=== PATIENT | male | born 1945 | race Caucasian/White ===

== ENCOUNTER 2019-02-23 07:02 | Day surgery (SDC) | payer MEDICARE, OTHER ==
[2019-02-23] MEDS ORDERED: ONDANSETRON HCL INJ/PF 4 MG/2 ML SDV ONE (07:11)
[2019-02-23] MEDS ORDERED: DIPHENHYDRAMINE HCL 50 MG/ML VIAL ONE (07:11)
[2019-02-23] MEDS ORDERED: EPINEPHRINE INJ 1 MG/10 ML DISP.SYRIN ONE (07:12)
[2019-02-23] MEDS ORDERED: NALOXONE HCL INJ/PF 0.4 MG/1 ML SDV ONE (07:12)
[2019-02-23] MEDS ORDERED: FLUMAZENIL INJ 0.5 MG/5 ML VIAL ONE (07:12)
[2019-02-23] MEDS ORDERED: GLUCAGON,HUMAN RECOMB 1 MG INJ ONE (07:12)
[2019-02-23] MEDS: MIDAZOLAM 2 MG/2 ML INJ ONE ×3 (07:43→07:58)
[2019-02-23] MEDS: FENTANYL CITRATE INJ/PF 100 MCG/2 ML AMPUL ONE ×2 (07:45→07:48)
--- NOTE | 2019-02-23 08:32 | Discharge Summary ---
Discharge Summary (SDC) - Discharge Final Diagnosis: 1. Moderate gastritis 2. Mild duodenitis 3. Multiple colonic polyps 4. Pandiverticulosis Date of Surgery: 02/23/19 Discharge Date: 02/23/19 Condition: Good Treatment or Instructions: [address] [id number] POST ENDOSCOPY DISCHARGE INSTRUCTIONS 1. Diet: Start clear liquids that a regular diet as tolerated. 2. Resume all preoperative medications. All oral anticoagulants and aspirins can be resumed 24 hours after procedure. 3. If a polypectomy was performed some bleeding per rectum may occur. This should stop within 3 days. If not, please contact the office. 4. If you had a colonoscopy you may experience some bloating and delayed return of normal bowel function for several days, your regular bowel movement pattern should resume within a week. 5. Please contact [facility] at to make an appointment with Dr. Pardo for 1 to 3 weeks following procedure. 6. If you have any questions or concerns regarding your care,treatment plan or follow up, please contact our office. 7. Per clinical guidelines we recommend you undergo a repeat colonoscopy in 3 years. Referrals: JODIE CARLTON MD [Primary Care Provider] - Discharge Diet: As Tolerated Discharge Activity: Activity As Tolerated Home Care Assistance: None Needed Report the Following to Your Physician Immediately: Shortness of Breath, Increase in Pain, Fever over 101 Degrees
--- NOTE | 2019-02-23 08:40 | Operative Report ---
Operative Report DATE OF SURGERY: 02/23/19 PREOPERATIVE DIAGNOSIS: 1. Personal history of colon polyps. 2. Blood loss r elated anemia POSTOPERATIVE DIAGNOSIS: Same with. 1. Moderate chronic gastritis. 2. Mild duodenitis. 3. Scattered pandiverticulosis. 4. Multiple colonic polyps. 5. Neovascularity of the appendiceal orifice. 6. Evidence of fundoplication OPERATION: 1. Esophagogastroduodenoscopy. 2. Mucosal biopsy of gastric antrum. 3. Total colonoscopy to cecum with photodocumentation. 4. Mucosal biopsy of the appendiceal orifice. 5. Multiple colonic polypectomies including cecum, ascending colon, and upper rectum x2 SURGEON: SAMMIE LOWERY ANESTHESIA: Moderate Sedation TISSUE REMOVED OR ALTERED: Multiple biopsies and polyps removed COMPLICATIONS: None ESTIMATED BLOOD LOSS: Scant INTRAOPERATIVE FINDINGS: See below PROCEDURE: The patient was taken to the preop holding area the main endoscopy suite fifth floor possible. Monitoring devices were attached, and appropriate level of conscious sedation induced Surgical plan and surgical timeout were conducted. The flexible adult upper endoscope was advanced through the oropharynx, the hypopharynx, the esophagus, stomach and duodenum. The patient tolerated the procedure well. The first and second portions of the duodenum were unremarkable except for mild duodenitis. Photo taken but no biopsy performed. There was no evidence of tumor stricture bleeding or clot. The scope was withdrawn through the pylorus which was mildly erythematous. The stomach was noted for no retained gastric contents. There was no evidence of tumor stricture bleeding or. The rugae flattened, and appeared chronically inflamed. Biopsy random of the gastric antrum obtained. Bleeding minimal Of note the patient had previous hiatal hernia surgery with evidence of fundoplication AKA wrap. The wrap appeared to be intact and appeared to be at least 270 degrees possibly a 360. Multiple photos were taken of the wrap. We approached the GE junction in a retrograde and antegrade fashion. No evidence of stricture bleeding or polyp. The Z line was now at 38 cm from the incisor. The scope was now withdrawn from the stomach after decompressing the gastric lumen. The remainder the esophagus was examined closely and no evidence of pathology. Scope was withdrawn the patient's oropharynx. Instrumentation now set up for colonoscopic evaluation. Patient was placed in the extreme left lateral decubitus position, knees to chest. A rectal exam was performed which revealed the posterior surface of the prostate gland is enlarged. The flexible adult colonoscope was advanced to the anal rectal canal all the way to the cecum. This was an excellent study in a well-prepped bowel. Transillumination anterior abdominal wall, visualization of the ileocecal valve as well as appendiceal orifice confirmed cecal intubation. The appendiceal orifice had a neovascular figuration just adjacent to the opening. There was no bijal mass. Photos are taken and a cold forceps biopsy obtained of the mucosa at the orifice rim. Bleeding was minimal There was also a cecal polyp, small, sessile removed with a cold forceps device probably bleeding minimal. The scope was withdrawn the length of the colon checked the mucosa carefully. In the ascending colon was a 3-4 mm polyp was photographed, removed with the cold forceps device. Bleeding minimal. There were scattered diverticulosis of the ascending and descending. No evidence of bijal stricture. There was some tortuosity of the glenoid colon however. The scope was withdrawn through the rectosigmoid junction and into the upper rectum. 2-3 small hyperplastic appearing polyps were removed with the cold forceps device and submitted as rectal polyps. Eating was minimal The scope was retroflexed in the anal rectal canal. No other pathology seen. Scope was straightened and withdrawn through the anal canal. Patient tolerated procedure well. Per surveillance guidelines, patient be appropriate candidate for follow-up colonoscopy in 3 years, or sooner if symptoms develop. Char patelating.
[2019-02-23 09:30] VITALS: BP 142/85
== END 2019-02-23 09:29 | disposition home or self-care (01) ==
LOC: END 07:02
PROVIDERS: ATTEND Surgery
DX: K29.50 Unspecified chronic gastritis without bleeding (principal); K29.80 Duodenitis without bleeding; K57.30 Diverticulosis of large intestine without perforation or abscess without bleeding; K52.9 Noninfective gastroenteritis and colitis, unspecified; K63.5 Polyp of colon; D12.0 Benign neoplasm of cecum; D12.2 Benign neoplasm of ascending colon; K62.5 Hemorrhage of anus and rectum; Z86.010 Personal history of colon polyps; D50.0 Iron deficiency anemia secondary to blood loss (chronic); I10 Essential (primary) hypertension; E78.00 Pure hypercholesterolemia, unspecified; M54.14 Radiculopathy, thoracic region; F41.9 Anxiety disorder, unspecified; Z79.899 Other long term (current) drug therapy; Z86.19 Personal history of other infectious and parasitic diseases
CPT/HCPCS: 43239; 45380; 88342 ×2; 88305 ×2; J2250; J3010; J0171; J1200; J1610; J2310; J2405; J3490